=== PATIENT | male | born 1955 | race Caucasian/White ===

== ENCOUNTER 2023-11-24 15:12 | Emergency (ER) | payer OTHER ==
[~2023-11-24] VITALS: Ht 177.8 cm; Wt 70.8 kg
[2023-11-24 15:17] VITALS: BP 103/55; PULSE 101; RESP 18; TEMP 99.8; O2SAT 98
[2023-11-24 16:20] LABS: BASOPHILS % (AUTO) 0.2 % (0.0-2.0); EOSINOPHILS # (AUTO) 0.1 K/uL (0-0.4); EOSINOPHILS % (AUTO) 0.7 % (0.0-4.0); HEMATOCRIT 22.8 % (36-52); HEMOGLOBIN 7.5 g/dL (12.0-18.0); LYMPHOCYTES # (AUTO) 2.6 K/uL (2.0-11.5); LYMPHOCYTES % (AUTO) 31.9 % (20.5-51.1); MEAN CORPUSCULAR HEMOGLOBIN 28 pg (27-31); MEAN CORPUSCULAR HGB CONC 33 g/dL (33-37); MEAN CORPUSCULAR VOLUME 83.9 fL (80-94); MONOCYTES # (AUTO) 0.4 K/uL (0.8-1.0); MONOCYTES % (AUTO) 5.5 % (1.7-9.3); NEUTROPHILS % (AUTO) 61.7 % (42.2-75.2); PLATELET COUNT (AUTO) 193 K/uL (140-450); RED BLOOD CELL COUNT(AUTO) 2.72 MIL/uL (4.20-6.10); RED CELL DISTRIBUTION WIDTH 18.3 % (11.6-13.7)
[2023-11-24 16:47] LABS: ANION GAP 12.8 (8-16); CALCIUM 7.9 mg/dL (8.5-10.1); CARBON DIOXIDE 24.1 mmol/L (21-32); POTASSIUM 3.9 mmol/L (3.5-5.1)
[2023-11-24 16:48] LABS: INR 1.02 (0.8-1.2); PARTIAL THROMBOPLASTIN TIME 28.5 secs (22-35.6); PROTHROMBIN TIME 10.7 secs (10.8-13.4)
[2023-11-24 16:56] LABS: ALANINE AMINOTRANSFERASE 21 U/L (12-78); ALBUMIN 2.3 g/dL (3.4-5.0); ALKALINE PHOSPHATASE 153 U/L (50-136); ASPARTATE AMINOTRANSFERASE 23 U/L (15-37); BILIRUBIN,DIRECT 0.1 mg/dL (0.0-0.3); CREATINE KINASE, TOTAL 51 U/L (39-308); LIPASE 54 U/L (16-77); TOTAL BILIRUBIN 0.3 mg/dL (0.0-1.0); TOTAL PROTEIN, SERUM 7.1 g/dL (6.4-8.2)
[2023-11-24 16:58] LABS: LACTIC ACID 1.7 mmol/L (0.4-2.0)
[2023-11-24 17:44] LABS: BILIRUBIN,URINE NEGATIVE (NEGATIVE); BLOOD, URINE 2+ (NEGATIVE); COLOR,URINE YELLOW (YELLOW); LEUKOCYTE ESTERASE ,URINE NEGATIVE (NEGATIVE); NITRITE, URINE NEGATIVE (NEGATIVE); PROTEIN,URINE 2+ (NEGATIVE); UGLUCOSE NEGATIVE (NEGATIVE); UROBILINOGEN,URINE 0.2 EU/dL (0.2 - 1)
[2023-11-24 17:45] LABS: APPEARANCE,URINE SLIGHTLY HAZY (CLEAR)
[2023-11-24 17:46] LABS: RBC,URINE 0-5 /HPF (0-5)
[2023-11-24 17:47] LABS: BACTERIA,URINE 1+ /HPF (None Seen); MUCUS,URINE None Seen /LPF (None Seen); SQUAMOUS EPITHELIAL CELL,UR 0-3 (FEW) /LPF (0-3 (FEW)); WBC,URINE 0-5 /HPF (0-5)
[2023-11-24 18:30] VITALS: BP 131/50; PULSE 94; RESP 18; TEMP 99.8; O2SAT 98
== END 2023-11-24 18:30 | disposition home or self-care (01) ==
LOC: MED 15:12
DX: R53.1 Weakness (principal); D64.9 Anemia, unspecified; R42 Dizziness and giddiness; R30.0 Dysuria; Z79.899 Other long term (current) drug therapy
CPT/HCPCS: 36415; 71045; 80048; 80076; 81001; 82550; 83605; 83690; 84484; 85025; 85610; 85730; 86886; 86900; 86901; 87040; 87086; 93005; 99285